=== PATIENT | male | born 1970 | race Caucasian/White ===

== ENCOUNTER → 2022-03-25 | Emergency (ER) | payer SELFPAY ==
--- NOTE | 2022-03-25 13:21 | NUR ---
PT NOT IN WAITING ROOM WHEN CALLED FOR TRIAGE X 2.
--- NOTE | 2022-03-25 14:12 | NUR ---
PT STLL NOT IN WAITING ROOM WHEN CALLED FOR TRIAGE - 3RD CALL.
== END | disposition left against medical advice (07) ==
LOC: ER 13:04
DX: Z53.21 Procedure and treatment not carried out due to patient leaving prior to being seen by health care provider (principal)